=== PATIENT | male | born 2005 | race Caucasian/White ===

== ENCOUNTER 2024-06-11 16:45 | Emergency (ER) | payer MEDICAID, SELFPAY ==
[2024-06-11 16:54] VITALS: BP 133/78; PULSE 102; RESP 20; TEMP 36.3; O2SAT 97; BMI 31.5
[2024-06-11 17:43] LABS: Strep A DNA Probe* NOT DETECTED (Not Detectd)
[2024-06-11 17:56] LABS: PCR FLU A Negative PCR FLU A (Negative); PCR FLU B Negative PCR FLU B (Negative); PCR RSV Negative PCR RSV (Negative); SARS PCR* POSITIVE SARS-CoV-2 (Negative)
--- NOTE | 2024-06-11 18:49 | ED_ITS ---
HPI - General Adult General Time Seen by Provider: 18:49 Date Seen: 06/11/24 Chief complaint: Sore Throat Stated complaint: Cold, Sore Throat for past couple days Time Seen by Provider: 06/11/24 18:49 Source: patient and RN notes reviewed Mode of arrival: ambulatory Limitations: no limitations History of Present Illness HPI narrative: Patient is a very pleasant 18-year-old with history of asthma as a child who comes to the emergency room complaints of sore throat and cold-like symptoms. These symptoms started 3 days ago on WednesdayJune 09. Even with NyQuil and Tylenol patient notes that he has pain with swallowing. He has been able to tolerate ice cream. No significant difficulty breathing. He does feel like his ears are popping. Has noticed some soft stools today. No vomiting. Related Data Previous Rx's ?Medication ?Instructions ?Recorded nirmatrelvir 300 mg (150 mg See Rx Instructions PO .COMPLEX 06/11/24 x2)-ritonavir 100 mg tablet,dose #30 ea pack (Paxlovid) Allergies Allergy/AdvReac Type Severity Reaction Status Date / Time black walnut Allergy Verified 02/06/22 09:41 mold Allergy Sneezing Verified 02/06/22 09:41 pollen extracts Allergy Sneezing Verified 02/06/22 09:41 Review of Systems Status of ROS: Reports: 6 or more systems reviewed and unremarkable except as noted in History and below Const: Reports: fever and fatigue; Denies: chills Endo: Reports: fatigue PFSH PFSH Medical History Gastric foreign body ?T18.2XXA - Foreign body in stomach, initial encounter (ICD-10) Surgical History S/P tonsillectomy and adenoidectomy (08/01/10) ?Z90.89 - Acquired absence of other organs (ICD-10) History of placement of ear tubes (10/2008) ?Z96.22 - Myringotomy tube(s) status (ICD-10) Family History Maternal Grandmother Breast cancer Stroke Social History Smoking Status: Never smoker Do you use any of these nicotine containing products: None Second hand tobacco smoke exposure: Yes How often do you have a drink containing alcohol: never AUDIT-C Alcohol total score: 0 Exam Narrative: Exam Narrative: Alert and oriented. Nontoxic in appearance. EOM is full. TMs bilaterally without erythema of fluid note that left TM is difficult to see given cerumen. What I can see is non erythematous. Oral cavity moist mucous membranes. No significant erythema in the posterior oropharynx. Airway is patent. Neck is supple without lymphadenopathy. Heart with regular rate and rhythm. Lungs are clear bilaterally. Moving all extremities. Const: Vital Signs, click to edit/add: Vital Signs - 24 hr 06/11/24 16:54 Temperature 97.3 F L Pulse Rate [Pulse Oximeter] 102 H Respiratory Rate 20 Blood Pressure [Ri ght Upper Arm] 133/78 Pulse Oximetry 97 Documenting provider has reviewed patient's vital signs: yes Course Course ED Course: Patient has tested positive for COVID. He is not vaccinated. Remote history of asthma as a child. Would recommend treatment with Paxlovid. He and his grandmother are in agreement with this. This was sent to his pharmacy. Did talk to to patient's grandmother as she had initial vaccinations in 2019 but none since that time. She states that she has been feeling well and that she took care of other family members with COVID and never got it. Vital Signs Vital signs: Initial Vital Signs Temperature 97.3 F L 06/11/24 16:54 Temperature Source Temporal Artery Scan 06/11/24 16:54 Pulse Rate 102 H 06/11/24 16:54 Respiratory Rate 20 06/11/24 16:54 Blood Pressure 133/78 06/11/24 16:54 Blood Pressure Mean 96 06/11/24 16:54 Blood Pressure Position Sitting 06/11/24 16:54 Pulse Oximetry 97 06/11/24 16:54 Vital Signs Temperature 97.3 F L 06/11/24 16:54 Pulse Rate 102 H 06/11/24 16:54 Respiratory Rate 20 06/11/24 16:54 Blood Pressure 133/78 06/11/24 16:54 Pulse Oximetry 97 06/11/24 16:54 Temperature 97.3 F L 06/11/24 16:54 Pulse Rate 102 H 06/11/24 16:54 Respiratory Rate 20 06/11/24 16:54 Blood Pressure 133/78 06/11/24 16:54 Pulse Oximetry 97 06/11/24 16:54 Medical Decision Making MDM Narrative Medical decision making narrative: 1. COVID-Paxlovid as directed. Add ibuprofen or Aleve to help with symptoms of sore throat. Push fluids as much as possible. O2 sats reassuring at 97%. Lung sounds are clear. 2. Disposition-home at this time. Return to the ER for difficulty breathing, vomiting, dehydration and as needed. Medical Records Medical records reviewed: Yes I reviewed the patient's medical records Lab Data Lab results reviewed: Yes I reviewed the patient's lab results Labs: Lab Results 06/11/24 Range/Units 17:00 SARS-CoV-2 (PCR) POSITIVE SARS-CoV-2 A (Negative) Influenza Type A (PCR) Negative PCR FLU A (Negative) Influenza Type B (PCR) Negative PCR FLU B (Negative) RSV (PCR) Negative PCR RSV (Negative) Group A Strep DNA NOT DETECTED (Not Detectd) Discharge Plan Discharge Clinical Impression: COVID Patient Disposition: Home, Self-Care Condition: Unchanged Additional Instructions: Start Paxlovid tomorrow. Prescription has been sent to your pharmacy. Ibuprofen or Aleve are anti-inflammatories which may work better for your sore throat. Return for difficulty breathing and worsening symptoms. Your contagious for probably another 4 days. Prescriptions: New Paxlovid 300 mg (150 mg x 2)-100 mg tablets,dose pack See Rx Instructions .ROUTE .COMPLEX Qty: 30 0RF Rx Instructions: take TWO 150 mg tablets of nirmatrelvir with ONE 100 mg tablet of ritonavir twice daily for 5 days Follow Up/Referrals: Silvio Melissa DO [Primary Care Provider] - Stand Alone Forms: [facility] [facility] Info Instructions
== END 2024-06-11 19:30 | disposition home or self-care (01) ==
LOC: ED 19:30
PROVIDERS: Emergency Provider Family Medicine; PCP Pediatrics
DX: U07.1 COVID-19 (principal)
CPT/HCPCS: 87631; 87651; 99283; 99284